=== PATIENT | female | born 1955 | race Caucasian/White ===

== ENCOUNTER 2017-11-21 07:10 | Emergency (ER) | payer BC, OTHER ==
[2017-11-21 07:29] VITALS: BP 115/65
[2017-11-21] MEDS ORDERED: Carbamide Peroxide 6.5% OTIC* 15 ML BTL BOTH EARS ONE (07:34)
--- NOTE | 2017-11-21 07:40 | UC ---
Ear Complaint HPI - HPI Summary HPI Summary: 61 year old female with history of hypothyroidism here for right ear wax build up. Reports pressure but no ear pain. Went to her PMD that suggested oil but it did not work. Usually wears hearing aid. - History of Current Complaint Chief Complaint: UCEar Stated Complaint: EAR COMPLAINT Time Seen by Provider: 11/21/17 07:14 Onset/Duration: Gradual Onset Pain Intensity: 0 Aggravating Factors: Nothing Alleviating Factors: Nothing - Allergies/Home Medications Allergies/Adverse Reactions: Allergies Allergy/AdvReac Type Severity Reaction Status Date / Time levofloxacin [From Levaquin] Allergy Hives Verified 11/21/17 07:21 Home Medications: Home Medications Levothyroxine TAB* [Synthroid 25 MCG TAB*] 25 mg PO DAILY 11/21/17 [History Confirmed 11/21/17] QUEtiapine TAB* [Seroquel 100 MG *] 12.5 mg PO DAILY 11/21/17 [History Confirmed 11/21/17] PMH/Surg Hx/FS Hx/Imm Hx Endocrine History: Hypothyroidism - Surgical History Surgical History: Yes Surgery Procedure, Year, and Place: ta - Social History Alcohol Use: Occasionally Substance Use Type: None Smoking Status (MU): Never Smoked Tobacco Review of Systems Constitutional: Negative Skin: Negative Eyes: Negative ENT: Other - loss of hearing Respiratory: Negative Cardiovascular: Negative Gastrointestinal: Negative Genitourinary: Negative Motor: Negative Neurovascular: Negative Musculoskeletal: Negative Neurological: Negative Psychological: Negative All Other Systems Reviewed And Are Negative: Yes Physical Exam Triage Information Reviewed: Yes Vital Signs: Initial Vital Signs Temp 36.4 C 11/21/17 07:24 Pulse 75 11/21/17 07:24 Resp 16 11/21/17 07:24 BP 115/65 11/21/17 07:24 Pulse Ox 99 11/21/17 07:24 Vital Signs Reviewed: Yes ENT: Positive: Other - bilateral dried wax Neck exam: Normal Cardiovascular Exam: Normal Musculoskeletal Exam: Normal Skin Exam: Normal Ear Complaint Course/Dx - Course Course Of Treatment: Bilateral ear irrigation. Both TM visualized and no effusion or perforation - Differential Dx/Diagnosis Differential Diagnosis/HQI/PQRI: Cerumen Impaction, Otitis Externa, Otitis Media Provider Diagnoses: Cerumen impaction Discharge - Sign-Out/Discharge Documenting (check all that apply): Discharge/Admit/Transfer - Discharge Plan Condition: Good Disposition: HOME Prescriptions: Carbamide Peroxide 6.5% OTIC* [DEBROX 6.5% Otic*] 5 drop BOTH EARS BID #1 bottle Patient Education Materials: Cerumen Impaction (ED) Referrals: Yana Pearson MD [Primary Care Provider] - - Billing Disposition and Condition Condition: GOOD Disposition: Home
== END 2017-11-21 08:22 | disposition home or self-care (01) ==
LOC: UCEAST 07:10
DX: H61.23 Impacted cerumen, bilateral (principal); E03.9 Hypothyroidism, unspecified; Z88.1 Allergy status to other antibiotic agents; Z79.899 Other long term (current) drug therapy
CPT/HCPCS: 99212; A9270-GY; G0463